=== PATIENT | female | born 1985 | race Two or more races ===

== ENCOUNTER 2016-07-28 10:18 | Emergency (ER) | payer MEDICAID ==
[~2016-07-28] VITALS: Ht 160 cm; Wt 90.7 kg
[2016-07-28 12:14] VITALS: BP 126/70
== END 2016-07-28 17:43 | disposition home or self-care (01) ==
LOC: ER 10:18
DX: Z71.1 Person with feared health complaint in whom no diagnosis is made (principal); J45.909 Unspecified asthma, uncomplicated
CPT/HCPCS: 81025

== ENCOUNTER 2016-09-02 21:38 | Emergency (ER) | payer MEDICAID ==
[~2016-09-02] VITALS: Ht 160 cm; Wt 94.8 kg
[2016-09-02 21:56] VITALS: BP 114/72
== END 2016-09-03 03:20 | disposition left against medical advice (07) ==
LOC: ER 22:04
DX: R10.9 Unspecified abdominal pain (principal); Z53.21 Procedure and treatment not carried out due to patient leaving prior to being seen by health care provider